=== PATIENT | male | born 1975 | race Caucasian/White ===

== ENCOUNTER 2018-10-03 20:39 | Emergency (ER) | payer OTHER ==
[2018-10-03 20:49] VITALS: BP 168/92
--- NOTE | 2018-10-03 22:12 | ED Physician Documentation ---
History of Present Illness - Stated complaint Stated Complaint: HOLE IN BOTTOM LIP - Chief complaint Chief Complaint: Laceration - History obtained from History obtained from: Patient - History of Present Illness Timing: Prior to arrival - Additonal information Additional information: Patient is a previously healthy 43-year-old male presenting with through and through laceration to left lower lip after accidental fall while skateboarding. Patient reports that the skateboard came up in front of him and struck him in the lip. Patient adamantly denies other injuries, striking of head, loss of consciousness. Patient denies any vision changes, epistaxis, tooth pain or looseness, as well as any significant bleeding from the mouth. Immunizations current. Patient denies any particular improving or worsening factors to his symptoms. Review of Systems Eyes: denies: Loss of vision Nose: denies: Epistaxis PD PAST MEDICAL HISTORY - Past Medical History Past Medical History: No - Past Surgical History Past Surgical History: No - Present Medications Home Medications: Ambulatory Orders Medication Instructions Recorded Confirmed Chlorhexidine Gluconate [Peridex] 15 ml MM BID 10 Days #1 bottle 10/03/18 - Allergies Allergies/Adverse Reactions: Allergies Allergy/AdvReac Type Severity Reaction Status Date / Time amoxicillin AdvReac Unknown Verified 10/03/18 20:49 - Social History Does the pt smoke?: No Smoking Status: Never smoker Does the pt drink ETOH?: Yes Does the pt have substance abuse?: No - Immunizations Immunizations are current?: Yes PD ED PE NORMAL - Vitals Vital signs reviewed: Yes - HEENT HEENT: Atraumatic, Moist mucous membranes, Pharynx benign, Dentition benign (No evidence of intraoral trauma except for through and through laceration to left lower lip into buccal mucosa without complication. Laceration is approximately 2.5 cm.) - Respiratory Respiratory: No respiratory distress - Derm Derm: Normal color, Warm and dry, No rash - Extremities Extremities: No deformity, No tenderness to palpate - Neuro Neuro: Alert and oriented X 3, No motor deficit, No sensory deficit - Psych Psych: Normal mood, Normal affect Results - Vitals Vitals: Vital Signs - 24 hr 10/03/18 20:43 Temperature 37.0 C Heart Rate 71 Respiratory 17 Rate Blood Pressure 168/92 H O2 Saturation 98 Oxygen O2 Source Room air Procedures - Laceration (location) Lip Length in cm: 2.5 Wound type: Linear Neurovascular status: Sensory intact, Motor intact, Vascular intact Anesthesia: Lidocaine 1% with epi Wound Preparation: Irrigated copiously NS Deep layer closure: Vicryl, size #-0 - enter number (one 6-0) Skin layer closure: Nylon (3 6-0) Other: Patient tolerated well, No complications, Tetanus UTD Complexity: Simple PD MEDICAL DECISION MAKING - ED course Complexity details: re-evaluated patient, considered differential, d/w patient ED course: Patient has a through and through wound is otherwise uncomplicated to left lower lip. Low suspicion for concussion, facial fracture, skull fracture, intracranial injury, as well as other injuries including extremity, intra- abdominal, chest, or spinal cord/spine injuries. Tetanus is current and is not require updating. Wound appropriately anesthetized, cleaned, and repaired. Had extensive discussion regarding wound care, timing of suture removal, return precautions, and appropriate follow-up. Patient voiced understanding and is comfortable with discharge plan. Departure - Departure Disposition: 01 Home, Self Care Clinical Impression: Laceration Condition: Good Instructions: ED Laceration All, ED Laceration Mouth Follow-Up: your,doctor [Other] - Within 3 Days Prescriptions: Chlorhexidine Gluconate [Peridex] 15 ml MM BID 10 Days #1 bottle Comments: Please use Peridex mouthwash as instructed to help prevent infection. Also recommend good oral hygiene including regular brushing and flossing. Please be aware of your diet and avoid spicy foods, as well as foods that may cause discomfort to the wound. Recommend softer and liquid foods. Please return to the ED, urgent care, your primary care physician in 5 days for suture removal from the skin. The internal suture will dissolve on its own. Return to the ED sooner if experience signs of infection or other concerns. Discharge Date/Time: 10/03/18 22:58
== END 2018-10-03 22:58 | disposition home or self-care (01) ==
LOC: ED 20:39
DX: S01.511A Laceration without foreign body of lip, initial encounter (principal); V00.131A Fall from skateboard, initial encounter; W22.8XXA Striking against or struck by other objects, initial encounter; Y93.51 Activity, roller skating (inline) and skateboarding
CPT/HCPCS: 12011; 99283